=== PATIENT | female | born 1940 | race Hispanic/Latino ===

== ENCOUNTER → 2017-11-04 | Outpatient (CLI) | payer OTHER | END | disposition home or self-care (01) | LOC: RAH 11:48 | PROVIDERS: ATTEND Family Medicine | DX: I10 Essential (primary) hypertension (principal) | CPT/HCPCS: 71046 ==

== ENCOUNTER → 2018-11-30 | Outpatient (CLI) | payer OTHER | END | disposition home or self-care (01) | LOC: OIH 08:49 | PROVIDERS: ATTEND Family Medicine | DX: M85.88 Other specified disorders of bone density and structure, other site (principal); M48.02 Spinal stenosis, cervical region; M47.812 Spondylosis without myelopathy or radiculopathy, cervical region | CPT/HCPCS: 72040 ==

== ENCOUNTER → 2021-09-21 | Outpatient (CLI) | payer OTHER ==
[~2021-09-21] MED LIST: AMLO-258 PO; APIX2.5T PO; FERR324T10 PO; FURO40TA5 PO; HYDR-4060 PO; METO-409 PO; MULT-1258 PO; PRAV20TA4 PO; [UNRECOGNIZED DRUG - OTHER] PO
== END | disposition home or self-care (01) ==
LOC: SHCH 12:29
PROVIDERS: ATTEND Internal Medicine
DX: R22.43 Localized swelling, mass and lump, lower limb, bilateral (principal); M79.606 Pain in leg, unspecified
CPT/HCPCS: 93970

== ENCOUNTER → 2021-09-29 | Outpatient (CLI) | payer OTHER | END | disposition home or self-care (01) | LOC: SHCH 11:45 | PROVIDERS: ATTEND Internal Medicine | DX: I08.0 Rheumatic disorders of both mitral and aortic valves (principal); I11.9 Hypertensive heart disease without heart failure; I73.9 Peripheral vascular disease, unspecified; E78.5 Hyperlipidemia, unspecified | CPT/HCPCS: 93306 ==

== ENCOUNTER → 2021-10-23 | Outpatient (CLI) | payer OTHER, MEDICARE ==
[2021-10-23 12:35] LABS: CREATININE 0.7 mg/dL (0.5-1.5); POTASSIUM 4.7 mmol/L (3.5-5.1)
== END | disposition home or self-care (01) ==
LOC: LAB 10:00
PROVIDERS: ATTEND Internal Medicine
DX: I10 Essential (primary) hypertension (principal)
CPT/HCPCS: 36415; 80048

== ENCOUNTER → 2022-09-25 | Outpatient (CLI) | payer OTHER, MEDICARE | END | disposition home or self-care (01) | LOC: SHCH 12:11 | PROVIDERS: ATTEND Internal Medicine | DX: I08.3 Combined rheumatic disorders of mitral, aortic and tricuspid valves (principal); I27.20 Pulmonary hypertension, unspecified | CPT/HCPCS: 93306 ==

== ENCOUNTER → 2024-05-02 | Outpatient (CLI) | payer OTHER, MEDICARE ==
--- NOTE | 2024-05-07 08:47 | HMCSR ---
APPROVED REPORT EXAM: Two-dimensional and M-mode echocardiogram with Doppler and color Doppler. INDICATION ICD: Aortic valve disorders I35.0 2D Dimensions RVDd4.0 cmLVEF(%)61.7 (>50%)LVED Vol(simp.)112.0 mL IVSd1.4 (0.7-1.1cm)FS(%)33 %LVES Vol(simp.)49.0 mL LVDd4.8 (3.8-5.6cm)Ao Root(2D)3.2 (2.0-3.7cm)LVEF(%, simp.)57 % PWd1.3 (0.7-1.1cm)LVOT diam2.2 (1.8-2.4cm)LA ESV INDEX (BP)64.64 mL/m2 LVDs3.2 (2.5-4.0cm)IVC diam2.2 cm Aortic Valve AoV Vmax3.0 m/Meg Peak GR35.0 mmHgLVOT Vmax1.1 m/s AoV VTI0.7 mAo Mean GR21.4 mmHgLVOT VTI0.26 m ERICA (VMAX)1.4 cm2AVA (VTI) 1.4 cm2 Mitral Valve MV E Ktds226.5 cm/sDECEL Tgvt161 ms MV A Vmax73.4 cm/s E/A ratio1.6 MR Max PG157 mmHg TDI E/E' Srcipz48.6E/E' Itzlpli16.5 Pulmonary Valve PV Vmax1.0 m/sPV VTI0.21 mPV Mean GR2 mmHg PV Peak GR3.7 mmHgPI End Cherie. Bryan 1.3 cm/s Tricuspid Valve TR Vmax3.3 m/sRAP (EST) 8 orRbSLFQ76.1 mmHg TR Peak GR43.1 mmHg Left Ventricle Left ventricular cavity size is normal. There is normal LV segmental wall motion. There is mild to mo derate concentric left ventricular hypertrophy. LVEF is 55-60%. Stage II, diastolic dysfunction. Right Ventricle The right ventricle is normal size. The right ventricular systolic function is normal. Atria The left atrium is severely dilated. The right atrium size appears normal. Aortic Valve Aortic valve is trileaflet. Aortic valve leaflets are thickened and calcified. Trace aortic regurgita tion. There is mild to moderate valvular aortic stenosis.Calculated aortic valve area is 1.4 cm2 with maximum pressure gradient of 35.0 mmHg and mean pressure gradient of 21.4 mmHg. Mitral Valve Mitral annular calcification is mild. Mitral valve leaflets are sclerotic but open well. Mitral regur gitation is moderate to severe. There is no mitral valve stenosis. Tricuspid Valve The tricuspid valve leaflets appear normal. There is moderate tricuspid regurgitation. Right ventricu lar systolic pressure is estimated at 50-60 mmHg. There is moderate pulmonary hypertension. Pulmonic Valve The pulmonic valve leaflets appear normal. There is trace pulmonic valvular regurgitation. Great Vessels The aortic root apperas normal in size. IVC is dilated and collapses >50% with inspiration. Pericardium No pericardial effusion. Conclusion There is mild to moderate concentric left ventricular hypertrophy. LVEF is 55-60%. Stage II, diastolic dysfunction. There is mild to moderate valvular aortic stenosis.Calculated aortic valve area is 1.4 cm2 with maxim um pressure gradient of 35.0 mmHg and mean pressure gradient of 21.4 mmHg. Mitral regurgitation is moderate to severe. There is moderate tricuspid regurgitation. Right ventricular systolic pressure is estimated at 50-60 mmHg. There is moderate pulmonary hypertension.
== END | disposition home or self-care (01) ==
LOC: SHCH 08:35
PROVIDERS: ATTEND Internal Medicine Cardiovascular Disease
DX: I35.0 Nonrheumatic aortic (valve) stenosis (principal)
CPT/HCPCS: 93306